=== PATIENT | female | born 1970 | race Caucasian/White ===

== ENCOUNTER 2019-09-12 15:15 | Outpatient (CLI) | payer BC, SELFPAY ==
--- NOTE | ~2019-09-12 | MM_ITS ---
EXAMINATION: MM screening maik BI w kaycee HISTORY: Screening mammogram TECHNIQUE: Craniocaudal and mediolateral oblique 3-D tomosynthesis images were obtained and synthetic 2-D images were generated. CAD analysis was submitted and interpreted. COMPARISON: No prior mammogram is available for comparison at this institution. BREAST PARENCHYMAL COMPOSITION: FINDINGS: There are bilateral mammographic asymmetries including possible 6 mm and 10 mm upper mid ri ght breast masses. Bilateral diagnostic mammography is recommended, with right breast ultrasound and possibly left breas t ultrasound as appropriate. IMPRESSION: 1. Bilateral mammographic asymmetries and suggestion of at least 2 upper mid right breast masses 2. Diagnostic bilateral mammogram is recommended, with right breast and possibly left breast ultrasou nd as appropriate BI-RADS Category 0: Incomplete: Needs additional imaging evaluation. Reviewed, dictated and finalized at location A. IMPRESSION: 1. Bilateral mammographic asymmetries and suggestion of at least 2 upper mid ri ght breast masses 2. Diagnostic bilateral mammogram is recommended, with right breast and possibl y left breast ultrasound as appropriate BI-RADS Category 0: Incomplete: Needs additional imaging evaluation.
== END 2019-09-12 15:16 | disposition home or self-care (01) ==
LOC: ANHIMG 15:19
PROVIDERS: PCP Nurse Practitioner; Visit Provider Nurse Practitioner
DX: Z12.31 Encounter for screening mammogram for malignant neoplasm of breast (principal); R92.8 Other abnormal and inconclusive findings on diagnostic imaging of breast
CPT/HCPCS: 77063; 77067

== ENCOUNTER 2019-10-09 12:36 | Outpatient (CLI) | payer BC, SELFPAY ==
--- NOTE | ~2019-10-09 | MMUS_ITS ---
EXAMINATION: MM diagnostic mammo BI, US breast BI limited HISTORY: Follow-up breast asymmetries TECHNIQUE: Additional 3-D tomosynthesis images of the breasts were performed and synthetic 2-D images were generated. CAD analysis was submitted and interpreted. High resolution bilateral breast ultraso und was performed. COMPARISON: Comparison to multiple prior studies sequentially, with oldest reviewed study dated 05/10. FINDINGS: MAMMOGRAPHIC FINDINGS: The breasts are heterogenously dense, which may obscure small masses. Focal asymmetry in the upper in ner quadrant of the left breast is not significantly changed. No discrete mass. No suspicious calcifi cations or architectural distortion in the left breast. There is a 13 mm mass in the upper outer quad rant of the right breast posteriorly. There is a tissue marker in the subareolar location of the righ t breast. ULTRASOUND: Right breast ultrasound: At 12:00 near the nipple there is a 6 mm cyst. At 10:00, 6 cm from the nipple, there is a lobulated h ypoechoic mass measuring 12 x 11 x 8 mm with posterior acoustic enhancement. Left breast ultrasound: Normal heterogeneous echotexture without focal solid or cystic mass. IMPRESSION: 1. In the right breast at 10:00, 6 cm from the nipple there is a lobulated 12 mm hypoechoic mass nilton esponding to the mammographic abnormality. 2. Ultrasound-guided right breast biopsy recommended. BI-RADS category 4, suspicious findings. Reviewed, dictated and finalized at location A. IMPRESSION: 1. In the right breast at 10:00, 6 cm from the nipple there is a lobulated 12 m m hypoechoic mass corresponding to the mammographic abnormality. 2. Ultrasound-guided right breast biopsy recommended. BI-RADS category 4, suspicious findings.
== END 2019-10-09 12:37 | disposition home or self-care (01) ==
LOC: ANHIMG 12:37
PROVIDERS: PCP Nurse Practitioner; Visit Provider Obstetrics & Gynecology Gynecology
DX: N63.10 Unspecified lump in the right breast, unspecified quadrant (principal)
CPT/HCPCS: 76642; 77066

== ENCOUNTER 2022-01-04 01:26 | Day surgery (SDC) | payer BC, SELFPAY ==
--- NOTE | 2021-12-29 13:49 | PC.NURSE ---
Report to the Outpatient Waiting Room, entrance under the green pavilion located off [facility], at time _0915 on date 01/04/22. OR Time: 1115__. Time changes happen often and if your time is changed the preop area will call you the afternoon before. - You and your visitor will be asked to self-screen and do not enter if you have any COVID symptoms. - Only one visitor and NO children visitors are allowed at this time. - The patient visitor is requested to leave or wait in car when not with patient due to restrictions. - A mask is required within the hospital. Patients may have clear liquids (water, carbonated beverages, clear teas, apple juice) until 3 hours prior to surgery with a maximum of 20 ounces. - No food from midnight until time of surgery - Infants may have breast milk until 4 hours before surgery, formula 6 hours prior to surgery. - Children will be allowed to drink immediately following surgery. If applicable, please bring a bottle or sippy cup to assist with drinking. Juice, water, soda, and popsicles are readily available. For infants on formula, please bring formula the day of surgery. Pacifiers are allowed. Take the following medications with a SIP of water the morning of surgery: n/a_ Medications to discontinue per physician _vitamins Date to take last dose_01/01/22_ Please no make-up, nail austrian, hairspray, perfume, deodorant, or body powder the day of surgery. No jewelry (including any body piercings) or valuables the day of surgery, leave them at home. Please take a shower or bath the night before, or the morning of, surgery with an antibacterial soap. Wear comfortable, loose fitting clothing. Children are encouraged to wear pajamas. - Jewelry must be removed prior to entering the operating room. Rings and piercings that are not removed may be cut off. - The hospital will not accept responsibility for valuables. - Please leave all valuables, including medications, at home the day of surgery. If you are going home after surgery, a licensed local flatbed driver must drive you home. - NO public transportation without another adult. - We recommend that an adult stay with you for 24 hours following discharge. - We also recommend that you do not drive, make important decision, drink alcoholic beverages, or take any drugs that were not prescribed by your health care provider for at least 24 hours after your discharge time. For Pediatric surgeries, we recommend two adults accompany the child home (only one inside the building at this time). Follow any additional instructions given to you from your surgeon. If you or anyone in your household have experienced Covid symptoms in the past week, please notify your surgeon or the nurse liaison at the phone number below for possible testing. Telephone instructions given to Jessi Fisher and asked if any additional questions and then verbalized understanding. Patient advised to call surgeon office or pre surgery nurse liaison [phone] if any additional questions.
--- NOTE | 2022-01-04 07:40 | P.HP_ITS ---
History of Present Illness History of Present Illness Consent: Risks, benefits, and alternatives have been discussed and questions answered. Patient agrees to proceed with procedure. Chief complaint: menorrhagia, hx of hyperplasia Narrative: Jessi Fisher is a 51 year old female with new onset of heavy cycles. Patient has a history of hyperplasia in 2019 therefore was recommended to proceed with repeat tissue sampling. Patient prefers the operating room for office procedure therefore the patient presents for hysteroscopy D&C. Risks of infection, bleeding, and perforation were reviewed. Possible pathology was also discussed. Review of Systems Review of Systems: not repeated day of surgery; patient states no changes in status [facility] Past Medical History Medical History (Updated 01/04/22 @ 07:44 by Lashanda Hair MD) GERD (gastroesophageal reflux disease) HTN (hypertension) Surgical History Surgical History (Updated 01/04/22 @ 07:43 by Lashanda Hair MD) History of breast biopsy 1992 lumpectomy benign, breast biopsy 2018 benign, breast biopsy 2020 benign History of hysteroscopy 2019 with simple hyperplasia without atypia History of loop electrosurgical excision procedure (LEEP) Family History Family History (Updated 11/17/17 @ 09:29 by DOCTOR UNKNOWN) Other Diabetes mellitus Family history of anemia Social History Social History Smoking status: Never smoker Alcohol intake: current Substance use: never Living arrangements: with family Spiritual care concerns: No Meds Home Medications and Allergies Home Medications Medication Instructions Recorded Confirmed Type calcium 100 mg capsule 100 mg PO DAILY 12/29/21 12/29/21 History hydrochlorothiazide 12.5 mg capsule 12.5 mg PO DAILY 12/29/21 12/29/21 History hydroxyzine pamoate 25 mg capsule 25 mg PO DAILY 12/29/21 12/29/21 History multivit with minerals-iron 18 1 tablet PO DAILY 12/29/21 12/29/21 History mg-folic ac 400 mcg-vit K 25 mcg tablet (Adults Multivitamin) omeprazole 20 mg capsule,delayed 20 mg PO BID 12/29/21 12/29/21 History release Allergies Allergy/AdvReac Type Severity Reaction Status Date / Time No Known Allergies Allergy Unknown Unverified 05/18/18 13:05 Exam Const: General: healthy appearing and alert Orientation/consciousness: patient oriented x3 Resp: Effort & Inspection: normal respiratory effort GI: GI Palp: Yes Soft to palpation, No Tenderness to palpation present (GI) and No Palpable mass present : External Female Exam: normal external appearance Speculum Exam - Vagina: normal appearance of the vagina and normal vaginal discharge Speculum Exam - Cervix: normal appearance of the cervix Bimanual exam- vagina & uterus: uterine size normal and consistency normal Bimanual Exam- Adnexa, other: normal adnexae and No adnexal tenderness Neuro: General: patient oriented x3 Assessment and Plan Assessment and plan (1) Menorrhagia: Code(s): N92.0 - Excessive and frequent menstruation with regular cycle Status: Acute Assessment and Plan: With history of hyperplasia plan is to proceed with D&C hysteroscopy
--- NOTE | 2022-01-04 07:40 | WPDHPUPDATE1 ---
History and Physical Update Update Date/Time: 01/04/22 07:40 History and Physical has been reviewed, including an updated exam of the patient. There are NO changes in the patient's condition. Risks, benefits, and alternatives have been discussed and questions answered. Patient agrees to proceed with procedure.
[2022-01-04 09:17] VITALS: BP 166/89; PULSE 67; RESP 16; TEMP 36.1; O2SAT 100; BMI 25.2
[2022-01-04] MEDS: LACTATED RINGERS 1,000 ML 30 ML IV CONT ×2 (09:23→11:24)
[2022-01-04 09:56] LABS: Anion Gap 14 mmol/L (8-16); Blood Urea Nitrogen 13 mg/dL (7-17); Carbon Dioxide 23 mmol/L (22-30); Chloride 100 mmol/L (98-107); Estimated CRCL calculation 85 ml/min; Estimated Glomerular Filt Rate > 60; Glucose 99 mg/dL (65-110); Potassium 3.7 mmol/L (3.4-5.0); Sodium 137 mmol/L (137-145)
--- NOTE | 2022-01-04 10:18 | WPDANESEPPF ---
Anes - Initial Pre Proc Eval Procedure: Operation Date: 01/04/22 10:30 Proposed Procedures p Hysteroscopy, Dilation and Curettage - Lashanda Hair MD Date/Time: 01/04/22 10:18 Surgeon: Lashanda Hair MD Pre Op Diagnosis: menorrhagia, hx of hyperplasia Patient Data Age: 51 Gender: F Height: 1.64 m Weight: 67.65 kg Last Vital Signs Temp 36.1 C L 01/04/22 09:17 Pulse 67 01/04/22 09:17 Resp 16 01/04/22 09:17 BP 166/89 H 01/04/22 09:17 Pulse Ox 100 01/04/22 09:17 O2 Del Method Room Air 01/04/22 09:17 Allergies Allergy/AdvReac Type Severity Reaction Status Date / Time No Known Allergies Allergy Unknown Verified 01/04/22 09:16 Home Medications Medication Instructions Recorded Confirmed Type calcium 100 mg capsule 100 mg PO DAILY 12/29/21 01/04/22 History hydrochlorothiazide 12.5 mg capsule 12.5 mg PO DAILY 12/29/21 01/04/22 History hydroxyzine pamoate 25 mg capsule 25 mg PO DAILY 12/29/21 01/04/22 History multivit with minerals-iron 18 1 tablet PO DAILY 12/29/21 01/04/22 History mg-folic ac 400 mcg-vit K 25 mcg tablet (Adults Multivitamin) omeprazole 20 mg capsule,delayed 20 mg PO BID 12/29/21 01/04/22 History release Laboratory Tests 01/04/22 09:30 Sodium 137 mmol/L mmol/L (137-145) Potassium 3.7 mmol/L mmol/L (3.4-5.0) Chloride 100 mmol/L mmol/L (98-107) Carbon Dioxide 23 mmol/L mmol/L (22-30) Anion Gap 14 mmol/L mmol/L (8-16) BUN 13 mg/dL mg/dL (7-17) Creatinine 0.60 mg/dL L mg/dL (0.7-1.0) Estim Creat Clear Calc 85 ml/min ml/min Estimated GFR > 60 (59 - ) Glucose 99 mg/dL mg/dL (65-110) Calcium 9.0 mg/dL mg/dL (8.4-10.2) Patient hx anesthesia problems: none Family hx anesthesia problems: none Results Review: All pre-operative results and documents have been reviewed as part of the pre-operative evaluation. [facility] Past Medical History Medical History GERD (gastroesophageal reflux disease) HTN (hypertension) Surgical History Surgical History History of breast biopsy 1992 lumpectomy benign, breast biopsy 2018 benign, breast biopsy 2020 benign History of hysteroscopy 2019 with simple hyperplasia without atypia History of loop electrosurgical excision procedure (LEEP) Family History Family History Other Diabetes mellitus Family history of anemia Social History Social History Smoking status: Never smoker Alcohol intake: current Substance use: never Living arrangements: with family Spiritual care concerns: No Anes - Eval Final PreProcedure Day of Procedure 01/04/22 10:18 Patient weight: normal Heart: regular rate and rhythm Lungs: clear to auscultation Airway: Mallampati scale class II Neurological: alert and oriented Last oral intake: >/= 8 hours ASA classification: II Emergent: no Anesthetic plan: proceed Anesthesia type and monitoring: general GIVS and standard monitoring Results Review: All pre-operative results and documents have been reviewed as part of the pre-operative evaluation. Informed Consent: The patient's anesthetic plan and its attendant risks and benefits were discussed with the patient/family/POA. Questions were solicited and answers provided to the satisfaction of the patient/family/POA.
[2022-01-04] MEDS: LIDOCAINE HCL 1% PF 30 ML VIAL INFILTRATE (11:08)
--- NOTE | 2022-01-04 11:19 | P.OP_ITS ---
Procedure Note - Detailed Date of Procedure 01/04/22 Pre-op Diagnosis menorrhagia, hx of hyperplasia Post-op Diagnosis Same Procedure Performed D&C hysteroscopy with MyoSure resection Surgeon Lashanda Hair MD Anesthesia MAC and Local Findings Uterus sounds to 8cm. The endometrium appears thickened especially anterior and to the left. Description of Procedure The patient is taken to the operating room and placed under anesthesia in the dorsal lithotomy position. She was prepped and draped in the usual sterile fashion. [place] speculum was placed in the vagina and the cervix grasped on the anterior lip with a tenaculum. The cervix is injected in each quadrant with lidocaine. The uterus is sounded to 8cm and the cervix serially dilated. The diagnostic hysteroscope was placed with the above-stated findings. The MyoSure device is opened and placed and the thickened areas are resected under direct visualization. The hysteroscope was removed and the sharp curette used to curette the endometrium until a good uterine cry was noted in all areas. All instruments are removed. Sponge, needle, and instrument counts are correct per the OR staff. Patient is awakened from anesthesia and taken to recovery in stable condition. Estimated Blood Loss 5 Drains No Packing No Pathology Yes (Endometrial shavings and curettings) Complications No immediate complications Condition Stable Disposition PACU
[2022-01-04 11:24] VITALS: BP 158/77; PULSE 68; RESP 12; O2SAT 98
[2022-01-04 11:45] VITALS: BP 147/77; PULSE 61; RESP 14; O2SAT 99
[2022-01-04 12:05] VITALS: BP 156/80; PULSE 52; RESP 14
== END 2022-01-04 12:10 | disposition home or self-care (01) ==
PROVIDERS: Anesthesiology; PCP Nurse Practitioner; Visit Provider Obstetrics & Gynecology Gynecology
PROC: 0U5B8ZZ Destruction of Endometrium, Via Natural or Artificial Opening Endoscopic (ICD-10-PCS; CPT 58563; principal; 2022-01-04 10:30)
DX: N92.0 Excessive and frequent menstruation with regular cycle (principal); I10 Essential (primary) hypertension; K21.9 Gastro-esophageal reflux disease without esophagitis
CPT/HCPCS: 58558; 36415; 80048; 88305; A9270; J1885; J2250; J2704; J3010; J7120